=== PATIENT | female | born 1975 | race Caucasian/White ===

== ENCOUNTER → 2018-05-01 | Outpatient (CLI) | payer OTHER | LOC: FIMAGING 09:52 | PROVIDERS: ATTEND Obstetrics & Gynecology | PROC: 10903ZU Drainage of Amniotic Fluid, Diagnostic from Products of Conception, Percutaneous Approach (ICD-10-PCS; principal; 2018-05-01) | DX: Z36.0 Encounter for antenatal screening for chromosomal anomalies (principal); O09.522 Supervision of elderly multigravida, second trimester; Z3A.19 19 weeks gestation of pregnancy | CPT/HCPCS: 82106-90; 88235-90; 88291-90 ==